=== PATIENT | male | born 1980 | race Caucasian/White ===

== ENCOUNTER 2021-06-24 22:50 | Day surgery (SDC) | payer BC ==
[2021-06-24] MEDS ORDERED: Sodium Chloride 0.9% 1,000 ML IV ONE (23:16)
[2021-06-24] MEDS ORDERED: Ondansetron 4 MG/2 ML SDV IVPUSH ONE (23:16)
[2021-06-24 23:40] LABS: CARBON DIOXIDE,CO2 28.4 mmol/L (21.0-32.0); POTASSIUM,K 4.5 mmol/L (3.5-5.1)
[2021-06-25] MEDS ORDERED: Iopamidol 612 MG/ML 100 ML Bottle IVPUSH STA (00:19)
[2021-06-25] MEDS ORDERED: Piperacillin/Tazobactam 4.5 GM in Sodium Chloride 0.9% 100 ML IV STA (00:53)
[2021-06-25] MEDS ORDERED: Lactated Ringers 1,000 ML IV STA (01:39)
[2021-06-25] MEDS ORDERED: fentaNYL 250 MCG/5 ML SDV ONE (02:13)
[2021-06-25] MEDS ORDERED: Propofol 200 MG/20 ML SDV ONE (02:13)
[2021-06-25] MEDS ORDERED: Famotidine 20 MG/2 ML SDV ONE (02:25)
[2021-06-25] MEDS ORDERED: Bupivacaine 0.25%/EPINEPHrine 1:200,000 10 ML SDV ONE (02:33)
[2021-06-25] MEDS ORDERED: Famotidine 20 MG/2 ML SDV IVPUSH STA (02:33)
[2021-06-25] MEDS ORDERED: Morphine 4 MG/ML VIAL IVPUSH PRN (02:44)
[2021-06-25] MEDS ORDERED: Lactated Ringers 1,000 ML IV SCH (02:45)
[2021-06-25] MEDS ORDERED: Acetaminophen/oxyCODONE 325-5 MG Tab PO PRN (02:45)
[2021-06-25] MEDS ORDERED: Ondansetron 4 MG/2 ML SDV IVPUSH PRN (02:46)
[2021-06-25] MEDS ORDERED: Ketorolac 30 MG/ML SDV ONE (03:33)
[2021-06-25] MEDS ORDERED: Ondansetron 4 MG/2 ML SDV ONE (03:33)
[2021-06-25] MEDS ORDERED: Dexamethasone 4 MG/ML 5 ML MDV ONE (03:33)
[2021-06-25] MEDS ORDERED: Sugammadex Sodium 200 MG/2 ML VIAL ONE (03:33)
[2021-06-25] MEDS ORDERED: Rocuronium Bromide 50 MG/5 ML Syringe ONE (03:33)
[2021-06-25] MEDS ORDERED: Succinylcholine/Sod PF 100 MG/5 ML SYRINGE IV ONE (03:33)
[2021-06-25] MEDS ORDERED: fentaNYL 100 MCG/2 ML SDV ONE (03:34)
[2021-06-25] MEDS ORDERED: HYDROmorphone 2 MG/ML Syringe ONE (04:00)
[2021-06-25] MEDS ORDERED: Piperacillin/Tazobactam 3.375 GM in Sodium Chloride 0.9% 50 ML IV SCH (04:30)
[2021-06-25] MEDS: Piperacillin/Tazobactam 3.375 GM in Sodium Chloride 0.9% 50 ML IV SCH ×3 (06:04→18:05)
== END 2021-06-25 19:45 | disposition home or self-care (01) ==
LOC: MW.ED 22:50 → MW.SDS 06-25 01:54 → MW.MS 06-25 03:30 → MW.SDS 06-25 19:45
PROVIDERS: ATTEND Surgery
DX: K35.33 Acute appendicitis with perforation, localized peritonitis, and gangrene, with abscess (principal); F17.220 Nicotine dependence, chewing tobacco, uncomplicated; Z01.812 Encounter for preprocedural laboratory examination; Z20.822 Contact with and (suspected) exposure to COVID-19
CPT/HCPCS: 00840; 36415; 71045; 71045-26; 74177; 74177-26; 80053; 81003; 83690; 85025; 96365; 96375; 99284; 99285-25; J0131; J0330; J1100; J1170; J1885; J2370; J2405; J2543; J2704; J3010; J3490; J7030; J7120; Q9967; U0002